=== PATIENT | female | born 1970 | race Hispanic/Latino ===

== ENCOUNTER 2023-09-01 13:26 | Emergency (ER) | payer OTHER, BC ==
[~2023-09-01] VITALS: Ht 152.4 cm; Wt 76.2 kg
[2023-09-01] MEDS: METHOCARBAMOL 500 MG TABLET PO STA (14:26)
[2023-09-01] MEDS ORDERED: METH-811 PO (15:21)
[2023-09-01 15:28] VITALS: BP 120/72; PULSE 70; RESP 16; O2SAT 99
[2023-09-01] MEDS: KETOROLAC 30MG VIAL (30MG/ML) IM ONE (15:36)
== END 2023-09-01 15:38 | disposition home or self-care (01) ==
LOC: EDH 13:26
DX: S16.1XXA Strain of muscle, fascia and tendon at neck level, initial encounter (principal); M25.512 Pain in left shoulder; I10 Essential (primary) hypertension; Z90.49 Acquired absence of other specified parts of digestive tract; Z90.710 Acquired absence of both cervix and uterus; Z98.890 Other specified postprocedural states; V89.2XXA Person injured in unspecified motor-vehicle accident, traffic, initial encounter; Y93.I9 Activity, other involving external motion; Y92.488 Other paved roadways as the place of occurrence of the external cause; Y99.8 Other external cause status
CPT/HCPCS: 99284; 73030; 72050; 96372; J1885